=== PATIENT | male | born 1970 | race Caucasian/White ===

== ENCOUNTER 2017-04-28 19:41 | Emergency (ER) | payer SELFPAY ==
--- NOTE | 2017-04-28 20:07 | C.PDOC ---
History Of Present Illness 46 year old male presents to the ER with a complaint of lower abdominal pain, testicular pain, dysuria, and frequency for the past several weeks. Patient was seen by PMD a week ago who started him on antibiotics, he reports having improvement of his dysuria, however, the frequency, abdominal pain, and testicular pain persists. Denies fever or chills. Time Seen by Provider: 04/28/17 19:50 History Per: Patient History/Exam Limitations: no limitations Onset/Duration Of Symptoms: Days Current Symptoms Are (Timing): Still Present Quality Of Discomfort: Unable To Describe Associated Symptoms: Urinary Symptoms (Frequency), Other (Abdominal pain, testicular pain). denies: Fever, Chills Alleviating Factors: None Recent travel outside of the [place]: No Past Medical History Reviewed: Historical Data, Nursing Documentation, Vital Signs Vital Signs: Last Vital Signs Temp 98.2 F 04/28/17 21:51 Pulse 53 L 04/28/17 21:51 Resp 18 04/28/17 21:51 BP 134/81 04/28/17 21:51 Pulse Ox 98 04/28/17 21:51 Surgical History: Cholecystectomy Family History: States: Unknown Family Hx - Social History Hx Alcohol Use: No Hx Substance Use: No Review Of Systems Except As Marked, All Systems Reviewed And Found Negative. Constitutional: Negative for: Fever, Chills Gastrointestinal: Positive for: Abdominal Pain Genitourinary: Positive for: Frequency, Other (Testicular pain) Physical Exam - Physical Exam Appears: Non-toxic, No Acute Distress Skin: Normal Color, Warm, Dry Head: Atraumatic, Normacephalic Eye(s): bilateral: Normal Inspection Oral Mucosa: Moist Chest: Symmetrical, No Tenderness Cardiovascular: Rhythm Regular Respiratory: Normal Breath Sounds, No Accessory Muscle Use Gastrointestinal/Abdominal: Soft, No Tenderness Male Genital: No Testicular Tenderness, No Testicular Swelling, No Inguinal Tenderness, No Inguinal Swelling, No Scrotal Swelling, No Circumcised Neurological/Psych: Oriented x3, Normal Speech ED Course And Treatment - Laboratory Results Result Diagrams: 04/28/17 20:29 04/28/17 20:29 O2 Sat by Pulse Oximetry: 99 (Room air) Pulse Ox Interpretation: Normal - Other Rad PELVIS X-Ray: Interpreted by Me (NEG) - CT Scan/US Testicular US Other Rad Studies (CT/US): Read By Radiologist, Radiology Report Reviewed CT/US Interpretation: EXAM: US Scrotum. US Duplex Arterial/Venous of the Testicles, Complete. EXAM DATE/TIME: 04/28/2017 8:25 PM. CLINICAL HISTORY: 46 years old, male; Pain; Scrotum pain. TECHNIQUE: Real-time ultrasound of the scrotum with color Doppler and image documentation. Real-time duplex. ultrasound scan of the arterial and venous flow of the scrotal contents with color Doppler flow and. spectral waveform analysis. COMPARISON: There are no prior studies for comparison. FINDINGS: Right: There is a right hydrocele. Right testicle measures 4.5 x 2.1 by 3.6 cm. Echotexture is. uniform. There are no masses.There is expected intratesticular blood flow. There is a hydrocele. Fluid. is mildly echogenic.Right epididymal head measures approximately 10 x 6 mm. There is a 2 x 1.5 x 1 mm scrotolith. Left: Left testicle measures approximately 4.7 x 2.1 x 3.1 cm. Left epididymal head measures. approximately 11 x 6 mm. There is a left hydrocele with echogenic fluid. There are no testicular masses. Echotexture of the testis is uniform. There is a small microcalcification. There is expected. intratesticular blood flow. There is a left varicocele. IMPRESSION: Small bilateral hydroceles; no torsion, epididymitis or orchitis; left varicocele Reevaluation Time: 21:43 Reassessment Condition: Improved (MALIK NO ACUTE FINDINGS. PS PENDING APPT W UROLOGIST IN [facility] 05/01) Medical Decision Making Medical Decision Making: Plan: * Blood work * Urinalysis * Testicular US * Pyridium * Toradol Disposition Counseled Patient/Family Regarding: Studies Performed, Diagnosis, Need For Followup, Rx Given - Disposition Referrals: Harpreet Min MD [Staff Provider] - Disposition: HOME/ ROUTINE Disposition Time: 21:44 Condition: IMPROVED Additional Instructions: YOUR LABS, ULTRASOUND AND XRAY ARE NORMAL. FOLLOW UP WITH YOUR PMD/UROLOGIST. RETURN IF WORSENING SYMPTOMS. Prescriptions: Ibuprofen [Motrin] 600 mg PO Q6 #30 tab Phenazopyridine HCl [Pyridium] 200 mg PO BID #6 tablet Forms: [employer] (Vietnamese), General Discharge Instructions - Clinical Impression Clinical Impression: Back pain, Groin pain, Testicular pain - Scribe Statement The provider has reviewed the documentation as recorded by the Scribe Martin Strickland All medical record entries made by the Scribe were at my direction and personally dictated by me. I have reviewed the chart and agree that the record accurately reflects my personal performance of the history, physical exam, medical decision making, and the department course for this patient. I have also personally directed, reviewed, and agree with the discharge instructions and disposition.
[2017-04-28 20:23] LABS: URINE BILIRUBIN NEGATIVE (NEGATIVE); URINE BLOOD NEGATIVE (NEGATIVE); URINE CLARITY Clear (Clear); URINE COLOR Straw (YELLOW); URINE GLUCOSE (UA) NORMAL (Normal); URINE LEUKOCYTE ESTERASE NEG Leu/uL (Negative); URINE NITRATE NEGATIVE (NEGATIVE); URINE PROTEIN NEGATIVE (NEGATIVE); URINE UROBILINOGEN NORMAL mg/dL (0.2-1.0)
[2017-04-28 20:32] LABS: BASO % 0.5 % (0.0-2.0); EOS # 0.3 K/uL (0.0-0.7); EOS % 2.9 % (0.0-4.0); HEMOGLOBIN 14.2 g/dL (12.0-18.0); LYMPH # 3.3 K/uL (1.0-4.3); LYMPH % 36.9 % (20.0-40.0); MEAN CELL VOLUME 85.2 fL (80.0-94.0); MEAN CORPUSCULAR HEMOGLOBIN 29.1 pg (27.0-31.0); MEAN CORPUSCULAR HGB CONC 34.2 g/dL (33.0-37.0); MEAN PLATELET VOLUME 9.3 fL (7.2-11.7); MONO # 0.9 K/uL (0.0-0.8); MONO % 10.2 % (0.0-10.0); NEUT # 4.4 K/uL (1.8-7.0); NEUT % 49.5 % (50.0-75.0); NRBC % 0.1 % (0.0-2.0); RBC 4.86 Mil/uL (4.40-5.90); RED CELL DISTRIBUTION WIDTH 14.2 % (11.5-14.5); WHITE BLOOD COUNT 8.8 K/uL (4.8-10.8)
[2017-04-28 20:48] LABS: BLOOD UREA NITROGEN 21 mg/dL (9-20); CALCIUM 9.3 mg/dl (8.6-10.4); GFR AFRICAN-AMERICAN > 60; GFR NON-AFRICAN AMERICAN > 60
--- NOTE | 2017-04-28 21:29 | US ---
EXAM: US Scrotum US Duplex Arterial/Venous of the Testicles, Complete EXAM DATE/TIME: 04/28/2017 8:25 PM CLINICAL HISTORY: 46 years old, male; Pain; Scrotum pain TECHNIQUE: Real-time ultrasound of the scrotum with color Doppler and image documentation. Real-time duplex ultrasound scan of the arterial and venous flow of the scrotal contents with color Doppler flow and spectral waveform analysis. COMPARISON: There are no prior studies for comparison. FINDINGS: Right: There is a right hydrocele. Right testicle measures 4.5 x 2.1 by 3.6 cm. Echotexture is uniform. There are no masses.There is expected intratesticular blood flow. There is a hydrocele. Fluid is mildly echogenic.Right epididymal head measures approximately 10 x 6 mm. There is a 2 x 1.5 x 1 mm scrotolith. Left: Left testicle measures approximately 4.7 x 2.1 x 3.1 cm. Left epididymal head measures approximately 11 x 6 mm. There is a left hydrocele with echogenic fluid. There are no testicular masses. Echotexture of the testis is uniform. There is a small microcalcification. There is expected intratesticular blood flow. There is a left varicocele IMPRESSION: Small bilateral hydroceles; no torsion, epididymitis or orchitis; left varicocele Additional nonemergent findings as described above.
[2017-04-28 21:51] VITALS: BP 134/81; PULSE 53; RESP 18; TEMP 98.2
[2017-04-28 21:59] VITALS: O2SAT 99
--- NOTE | 2017-04-29 08:40 | RAD ---
PROCEDURE: Radiographs of the pelvis. HISTORY: PAIN COMPARISON: None. FINDINGS: BONES: Pelvic Bones: Unremarkable. Hips: Grossly unremarkable. JOINTS: Sacroiliac Joints: Unremarkable. Pubic Symphysis: Unremarkable. OTHER FINDINGS: None. IMPRESSION: Unremarkable radiographs of the pelvis.
== END 2017-04-28 22:02 | disposition home or self-care (01) ==
LOC: C.ER 19:41
DX: R10.30 Lower abdominal pain, unspecified (principal); N50.819 Testicular pain, unspecified; M54.9 Dorsalgia, unspecified
CPT/HCPCS: 72170; 76870; 80048; 81001; 85025; 87086; 96374; 99284; J1885

== ENCOUNTER 2017-06-27 19:57 | Emergency (ER) | payer OTHER ==
[2017-06-27 20:58] VITALS: BP 127/83; PULSE 77; RESP 20; TEMP 99.4; O2SAT 97
--- NOTE | 2017-06-27 21:40 | C.PDOC ---
History Of Present Illness 46 yo male w/o significant PMHx come in for evaluation of cold sx associated with nasal congestion, runny nose, sore throat gradually developed for past 3-4 days. Pt admits, takes OTC medication with moderate improvement in sx. Otherwise , pt denies high fever, chills, headache, dizziness, drooling, neck pain, CP, SOB, dyspnea, wheezing, abd. pain, V/D, UTI sx, denies recent travel or known sick contact. Ambulate to Ed for evaluation, not in any apparent distress. Time Seen by Provider: 06/27/17 21:03 Chief Complaint (Nursing): Fever History Per: Patient Onset/Duration Of Symptoms: Gradual Current Symptoms Are (Timing): Better Past Medical History Reviewed: Historical Data, Nursing Documentation, Vital Signs Vital Signs: Last Vital Signs Temp 99.4 F 06/27/17 20:55 Pulse 77 06/27/17 20:55 Resp 20 06/27/17 21:50 BP 127/83 06/27/17 20:55 Pulse Ox 97 07/02/17 04:51 - Medical History PMH: No Chronic Diseases Surgical History: Cholecystectomy Family History: States: Unknown Family Hx - Social History Hx Alcohol Use: No Hx Substance Use: No Review Of Systems Except As Marked, All Systems Reviewed And Found Negative. Constitutional: Negative for: Fever, Chills ENT: Positive for: Nose Discharge, Nose Congestion. Negative for: Ear Pain, Ear Discharge, Throat Pain, Throat Swelling Cardiovascular: Negative for: Chest Pain Respiratory: Positive for: Cough. Negative for: Shortness of Breath, Wheezing Gastrointestinal: Negative for: Nausea, Vomiting, Abdominal Pain, Diarrhea Genitourinary: Negative for: Dysuria, Incontinence Musculoskeletal: Negative for: Neck Pain, Back Pain Skin: Negative for: Rash Neurological: Negative for: Weakness, Numbness, Altered Mental Status, Headache , Dizziness Physical Exam - Physical Exam Appears: Well, Non-toxic, No Acute Distress Skin: Normal Color, Warm, Dry, No Rash Head: Normacephalic Eye(s): bilateral: PERRL Ear(s): Bilateral: Normal Nose: No Flaring, No Discharge Oral Mucosa: Moist, No Drooling Tongue: Normal Appearing, No Swelling Lips: Normal Appearing, No Swelling Throat: No Erythema, No Drooling Neck: Trachea Midline, Supple, Other ((-) meningeal sign) Cardiovascular: Rhythm Regular, No Murmur Respiratory: No Decreased Breath Sounds, No Accessory Muscle Use, No Stridor, No Wheezing Gastrointestinal/Abdominal: Soft, No Tenderness, No Distention, No Guarding Back: No CVA Tenderness Extremity: Normal ROM, No Deformity, No Swelling Neurological/Psych: Oriented x3, Normal Speech ED Course And Treatment O2 Sat by Pulse Oximetry: 97 Pulse Ox Interpretation: Normal Progress Note: On re-evaluation, pt is awake, comfortable, not in any apparent distress. Afebrile, hemodynamicaly stable. NOn-toxic, tolerate Po well in ED. PulsEOx 97% RA. neck: Supple, (-) menigeal sign. ENT: no acute findings, uvula midline, no edema. Lungs: CTA B/L, BS equal B/L. ABd: benign, (-) guarding, (-) rebound. neurologicaly intact. Pt has clinical findings c/w Influenza-like illness. Pt Advised on course of ds. Ref. to f/u with PMD in 2- 3 days for re-eval. retrun to ED if any worsening or new changes. Disposition Counseled Patient/Family Regarding: Diagnosis, Need For Followup, Rx Given - Disposition Referrals: [facility] [Outside] Disposition: HOME/ ROUTINE Disposition Time: 21:37 Condition: STABLE Additional Instructions: Encourage fluids Take Ibuprofen as need for pain and fever Follow up with PMD in 2-3 days for re-evaluation. return to ED if any worsening or new changes. Prescriptions: Ibuprofen [Motrin Tab] 600 mg PO TID #20 tab Instructions: Viral Syndrome (DC) Forms: [employer] (Serbian) - Clinical Impression Clinical Impression: Influenza-like illness
== END 2017-06-27 21:50 | disposition home or self-care (01) ==
LOC: C.ER 19:57
DX: J11.1 Influenza due to unidentified influenza virus with other respiratory manifestations (principal)

== ENCOUNTER 2017-06-29 05:36 | Observation (INO) | payer OTHER, SELFPAY ==
[2017-06-29 06:38] LABS: URINE BILIRUBIN NEGATIVE (NEGATIVE); URINE BLOOD 2+ (NEGATIVE); URINE CLARITY Clear (Clear); URINE COLOR Yellow (YELLOW); URINE GLUCOSE (UA) NORMAL (Normal); URINE LEUKOCYTE ESTERASE NEG Leu/uL (Negative); URINE PROTEIN NEGATIVE (NEGATIVE); URINE UROBILINOGEN NORMAL mg/dL (0.2-1.0)
--- NOTE | 2017-06-29 06:47 | C.PDOC ---
History Of Present Illness 46 year old male presents to the ER with a complaint of generalized body aches, mouth sores,and persistent fever for the past few days. Patient was seen on 07/10 for the same complaints, he was advised to take motrin for viral illness, however, fever recurs. Patient also reports having a minimal cough. Denies SOB, urinary symptoms, or abdominal pain. Time Seen by Provider: 06/29/17 06:06 Chief Complaint (Nursing): Flu-like Symptoms History Per: Patient History/Exam Limitations: no limitations Onset/Duration Of Symptoms: Days Current Symptoms Are (Timing): Still Present Location Of Pain: Diffuse Myalgias, Other (Mouth) Sick Contacts (Context): None Associated Symptoms: Fever, Myalgias, Other ((+) Mouth sores. (-) SOB, urinary symptoms, abdominal pain) Ear Symptoms: Bilateral: None Recent travel outside of the [place]: No Past Medical History Reviewed: Historical Data, Nursing Documentation, Vital Signs Vital Signs: Last Vital Signs Temp 102.5 F H 06/29/17 06:54 Pulse 91 H 06/29/17 06:54 Resp 18 06/29/17 06:54 BP 112/73 06/29/17 06:54 Pulse Ox 95 06/29/17 07:18 Surgical History: Cholecystectomy Family History: States: Unknown Family Hx - Social History Hx Alcohol Use: No Hx Substance Use: No Review Of Systems Constitutional: Positive for: Fever Respiratory: Positive for: Cough (minimal). Negative for: Shortness of Breath Gastrointestinal: Negative for: Abdominal Pain Genitourinary: Negative for: Dysuria, Hematuria Musculoskeletal: Positive for: Other (Generalized body aches) Physical Exam - Physical Exam Appears: Non-toxic Skin: Normal Color, Warm, Dry Head: Atraumatic, Normacephalic Eye(s): bilateral: Normal Inspection Ear(s): Bilateral: Normal Oral Mucosa: Moist, Other (Small canker sores to buccal aspect of lower lip and gum) Throat: Normal, No Erythema, No Exudate Neck: Normal, Supple Chest: Symmetrical, No Tenderness Cardiovascular: Rhythm Regular Respiratory: Normal Breath Sounds, No Rales, No Rhonchi, No Wheezing Gastrointestinal/Abdominal: Soft, No Tenderness Back: No CVA Tenderness Neurological/Psych: Oriented x3, Normal Speech ED Course And Treatment O2 Sat by Pulse Oximetry: 95 (Room air) Pulse Ox Interpretation: Normal Progress Note: Toradol and tylenol administered. Urinalysis ordered. 0700: Pt reports no improvement of sx, still febrile 102.5 HR 91. labs, cxr, IVF ordered Disposition Counseled Patient/Family Regarding: Diagnosis - Disposition Disposition Time: 07:14 Condition: STABLE Forms: [employer] (Amharic) - Clinical Impression Clinical Impression: Fever - PA / [employer] C[employer] CLERK / Resident Statement MD/DO has reviewed & agrees with the documentation as recorded. - Scribe Statement The provider has reviewed the documentation as recorded by the Scribe Martin Strickland All medical record entries made by the Marcelinoibclifford were at my direction and personally dictated by me. I have reviewed the chart and agree that the record accurately reflects my personal performance of the history, physical exam, medical decision making, and the department course for this patient. I have also personally directed, reviewed, and agree with the discharge instructions and disposition. Physician Patient Turnover Patient Signed Over To: Jaye Mercado Handoff Comments: Pending labs and reeval
[2017-06-29] MEDS ORDERED: Sodium Chloride 0.9% 1,000 ML IV ONE (07:09)
[2017-06-29 07:25] LABS: BASO % 0.4 % (0.0-2.0); LYMPH # 0.9 K/uL (1.0-4.3); LYMPH % 6.7 % (20.0-40.0); MEAN CELL VOLUME 84.6 fL (80.0-94.0); MEAN CORPUSCULAR HEMOGLOBIN 29.2 pg (27.0-31.0); MEAN CORPUSCULAR HGB CONC 34.5 g/dL (33.0-37.0); MEAN PLATELET VOLUME 8.9 fL (7.2-11.7); MONO # 1.9 K/uL (0.0-0.8); MONO % 13.2 % (0.0-10.0); NEUT # 11.3 K/uL (1.8-7.0); NEUT % 79.7 % (50.0-75.0); PLATELET COUNT 190 K/uL (130-400); RBC 4.46 Mil/uL (4.40-5.90); RED CELL DISTRIBUTION WIDTH 13.2 % (11.5-14.5)
[2017-06-29 07:29] LABS: WHITE BLOOD COUNT 14.2 K/uL (4.8-10.8)
[2017-06-29] MEDS ORDERED: Sodium Chloride 0.9% 1,000 ML ONE (07:54)
[2017-06-29 07:57] LABS: ALB/GLOB RATIO 0.9 (1.0-2.1); ALBUMIN 3.6 g/dL (3.5-5.0); ALT/SGPT 22 U/L (21-72); AST/SGOT 22 U/L (17-59); BLOOD UREA NITROGEN 11 mg/dL (9-20); CALCIUM 8.7 mg/dl (8.6-10.4); GFR AFRICAN-AMERICAN > 60; GFR NON-AFRICAN AMERICAN > 60
[2017-06-29 08:18] LABS: BANDS 3 % (0-2); LYMPHOCYTE 9 % (20-40); MONOCYTE 13 % (0-10); NEUTROPHIL 75 % (50-75); PLATELET ESTIMATE NORMAL (NORMAL); TOTAL CELLS COUNTED 100
--- NOTE | 2017-06-29 08:34 | RAD ---
HISTORY: cough, fever COMPARISON: No prior. TECHNIQUE: Chest PA and lateral FINDINGS: LUNGS: Minimal subsegmental atelectasis at left base. No infiltrate. PLEURA: No significant pleural effusion identified. No pneumothorax apparent. CARDIOVASCULAR: Normal. OSSEOUS STRUCTURES: No significant abnormalities. VISUALIZED UPPER ABDOMEN: Normal. OTHER FINDINGS: None. IMPRESSION: No active disease.
[2017-06-29] MEDS ORDERED: Potassium Chloride 20 mEq ER Tab PO SCH (10:00)
[2017-06-29] MEDS ORDERED: Potassium Chloride 20 mEq ER Tab PO ONE (10:15)
[2017-06-29] MEDS: guaiFENesin 600 mg ER Tab PO SCH ×2 (10:40→21:29)
[2017-06-29 10:45] LABS: LEGIONELLA AG URINE NEGATIVE (NEGATIVE)
[2017-06-29 10:51] LABS: BARBITURATES, UR NEGATIVE (NEGATIVE); BENZODIAZEPINES, UR NEGATIVE (NEGATIVE); OPIATES, UR NEGATIVE (NEGATIVE); PHENCYCLIDINE, UR NEGATIVE (NEGATIVE)
--- NOTE | 2017-06-29 11:13 | CP.PCM.HP ---
Addendum entered and electronically signed by Neelima Brown DO 06/29/17 15:03: of note: tonsils enlarged bilaterally, inflamed with crypts. No drainage noted. Original Note: <Neelima Brown - Last Filed: 06/29/17 14:27> History of Present Illness - History of Present Illness History of Present Illness: HPI 46M with past medical history of BPH presents with fever 102.9F, chills, lower back and upper back aches, neck aches, headaches.Patient states the lower back pain began after having a rash appear on his lower back and arms. Patient states that the rash was itchy. Patient went to ER 06/27/16 and was sent home on Motrin and told to hydrate. Patient states he wasn't feeling better so he came in today. 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 Patient states he started having a dry cough 06/28/2017. Past Medical History: BPH, patient states he had measles and chicken pox when he was 14. Medications: Flomax 0.4mg PO QD Surgery: Cholecystectomy 2012 Hospitalizations: Hepatitis (Patient states it may have been Hepatitis B) Social: livestock farm workers. Last sexual encounter January 2017. Patient admits to headache, pain with movement of his eyes. Patient denies changes in vision, nausea, vomiting, loss of hearing, hemoptysis , neck stiffness, weakness, numbness, tingling, rhinorrhea. Present on Admission - Present on Admission Any Indicators Present on Admission: Yes History of DVT/PE: No History of Uncontrolled Diabetes: No Urinary Catheter: No Decubitus Ulcer Present: No Review of Systems - Constitutional Constitutional: Chills, Fever - EENT Eyes: As Per HPI - Cardiovascular Cardiovascular: As Per HPI. absent: Chest Pain with Activity, Dyspnea on Exertion, Edema - Respiratory Respiratory: Cough. absent: Dyspnea, Hemoptysis, Dyspnea on Exertion - Gastrointestinal Gastrointestinal: absent: Abdominal Pain, Dyspepsia, Dysphagia - Genitourinary Genitourinary: absent: Change in Urinary Stream, Difficulty Urinating, Dysuria, Urinary Frequency - Musculoskeletal Musculoskeletal: Back Pain (lower back paraspinal muscle tenderness). absent: Joint Swelling, Muscle Cramps, Muscle Weakness, Numbness, Radiating Pain into Limb, Stiffness - Integumentary Integumentary: absent: Erythema, Unusual Bruising - Neurological Neurological: As Per HPI. absent: Abnormal Gait, Abnormal Hearing, Dizziness, Tremor, Vertigo - Psychiatric Psychiatric: As Per HPI. absent: Anxiety Past Patient History - Past Social History Smoking Status: Never Smoked Chewing Tobacco Use: No Cigar Use: No Alcohol: Social Drugs: Cannabis (former user in his youth) - PSYCHIATRIC Hx Substance Use: No - SURGICAL HISTORY Hx Cholecystectomy: Yes - ANESTHESIA Hx Anesthesia: Yes Meds Allergies/Adverse Reactions: Allergies Allergy/AdvReac Type Severity Reaction Status Date / Time No Known Allergies Allergy Verified 04/28/17 19:56 Physical Exam - Head Exam Head Exam: NORMAL INSPECTION, NORMOCEPHALIC - Eye Exam Eye Exam: EOMI, Normal appearance Pupil Exam: NORMAL ACCOMODATION, PERRL - ENT Exam ENT Exam: Mucous Membranes Moist, Normal Exam - Neck Exam Neck exam: Positive for: Full Rom, Lymphadenopathy. Negative for: Thyromegaly Additional comments: cervical lymphadenopathy noted with mild tenderness to palpation bilaterally - Respiratory Exam Respiratory Exam: Clear to Auscultation Bilateral, NORMAL BREATHING PATTERN. absent: Accessory Muscle Use, Respiratory Distress - Cardiovascular Exam Cardiovascular Exam: REGULAR RHYTHM, +S1, +S2. absent: Bradycardia, Tachycardia - GI/Abdominal Exam GI & Abdominal Exam: Normal Bowel Sounds, Soft. absent: Firm, Guarding, Organomegaly - Rectal Exam Rectal Exam: absent: NORMAL INSPECTION - Extremities Exam Extremities exam: Positive for: full ROM. Negative for: pedal edema - Back Exam Back exam: FULL ROM, NORMAL INSPECTION, paraspinal tenderness (mild tenderness L2-L4). absent: CVA tenderness (L), CVA tenderness (R), rash noted - Neurological Exam Neurological exam: CN II-XII Intact, Oriented x3 - Psychiatric Exam Psychiatric exam: Normal Affect, Normal Mood - Skin Skin Exam: Dry, Intact, Normal Color, Warm Additional comments: no rash Results - Vital Signs Recent Vital Signs: Last Vital Signs Temp 99.2 F 06/29/17 10:15 Pulse 78 06/29/17 10:15 Resp 18 06/29/17 10:15 BP 118/76 06/29/17 10:15 Pulse Ox 99 06/29/17 10:15 - Labs Result Diagrams: 06/29/17 07:21 06/29/17 07:21 Labs: Laboratory Results - last 24 hr 06/29/17 06/29/17 06/29/17 06:12 07:21 07:21 WBC 14.2 H D RBC 4.46 Hgb 13.0 Hct 37.7 MCV 84.6 MCH 29.2 MCHC 34.5 RDW 13.2 Plt Count 190 MPV 8.9 Neut % (Auto) 79.7 H Lymph % (Auto) 6.7 L [place] % (Auto) 13.2 H Eos % (Auto) 0.0 Baso % (Auto) 0.4 Neut # (Auto) 11.3 H Lymph # (Auto) 0.9 L [place] # (Auto) 1.9 H Eos # (Auto) 0.0 Baso # (Auto) 0.0 Neutrophils % (Manual) 75 Band Neutrophils % 3 H Lymphocytes % (Manual) 9 L Monocytes % (Manual) 13 H Platelet Estimate Normal RBC Morphology Normal Sodium 141 Potassium 3.5 L Chloride 104 Carbon Dioxide 25 Anion Gap 16 BUN 11 Creatinine 0.7 L Est GFR ( Amer) > 60 Est GFR (Non-Af Amer) > 60 Random Glucose 127 H Lactic Acid Calcium 8.7 Total Bilirubin 1.2 AST 22 ALT 22 Alkaline Phosphatase 94 Lactate Dehydrogenase 331 Total Protein 7.6 Albumin 3.6 Globulin 4.0 H Albumin/Globulin Ratio 0.9 L Urine Color Yellow Urine Clarity Clear Urine pH 6.0 Ur Specific [place] 1.021 Urine Protein Negative Urine Glucose (UA) Normal Urine Ketones Negative Urine Blood 2+ H Urine Nitrate Negative Urine Bilirubin Negative Urine Urobilinogen Normal Ur Leukocyte Esterase Neg Urine WBC (Auto) 2 Urine RBC (Auto) 24 H Urine Opiates Screen Urine Methadone Screen Ur Barbiturates Screen Ur Phencyclidine Scrn Ur Amphetamines Screen U Benzodiazepines Scrn U Oth Cocaine Metabols U Cannabinoids Screen Influenza Typ A,B (EIA) Ur L.pneumophila Ag 06/29/17 06/29/17 06/29/17 07:52 09:49 09:49 WBC RBC Hgb Hct MCV MCH MCHC RDW Plt Count MPV Neut % (Auto) Lymph % (Auto) [place] % (Auto) Eos % (Auto) Baso % (Auto) Neut # (Auto) Lymph # (Auto) [place] # (Auto) Eos # (Auto) Baso # (Auto) Neutrophils % (Manual) Band Neutrophils % Lymphocytes % (Manual) Monocytes % (Manual) Platelet Estimate RBC Morphology Sodium Potassium Chloride Carbon Dioxide Anion Gap BUN Creatinine Est GFR ( Amer) Est GFR (Non-Af Amer) Random Glucose Lactic Acid 0.7 Calcium Total Bilirubin AST ALT Alkaline Phosphatase Lactate Dehydrogenase Total Protein Albumin Globulin Albumin/Globulin Ratio Urine Color Urine Clarity Urine pH Ur Specific [place] Urine Protein Urine Glucose (UA) Urine Ketones Urine Blood Urine Nitrate Urine Bilirubin Urine Urobilinogen Ur Leukocyte Esterase Urine WBC (Auto) Urine RBC (Auto) Urine Opiates Screen Urine Methadone Screen Ur Barbiturates Screen Ur Phencyclidine Scrn Ur Amphetamines Screen U Benzodiazepines Scrn U Oth Cocaine Metabols U Cannabinoids Screen Influenza Typ A,B (EIA) Negative for flu a/b Ur L.pneumophila Ag Negative 06/29/17 09:49 WBC RBC Hgb Hct MCV MCH MCHC RDW Plt Count MPV Neut % (Auto) Lymph % (Auto) [place] % (Auto) Eos % (Auto) Baso % (Auto) Neut # (Auto) Lymph # (Auto) [place] # (Auto) Eos # (Auto) Baso # (Auto) Neutrophils % (Manual) Band Neutrophils % Lymphocytes % (Manual) Monocytes % (Manual) Platelet Estimate RBC Morphology Sodium Potassium Chloride Carbon Dioxide Anion Gap BUN Creatinine Est GFR ( Amer) Est GFR (Non-Af Amer) Random Glucose Lactic Acid Calcium Total Bilirubin AST ALT Alkaline Phosphatase Lactate Dehydrogenase Total Protein Albumin Globulin Albumin/Globulin Ratio Urine Color Urine Clarity Urine pH Ur Specific [place] Urine Protein Urine Glucose (UA) Urine Ketones Urine Blood Urine Nitrate Urine Bilirubin Urine Urobilinogen Ur Leukocyte Esterase Urine WBC (Auto) Urine RBC (Auto) Urine Opiates Screen Negative Urine Methadone Screen Negative Ur Barbiturates Screen Negative Ur Phencyclidine Scrn Negative Ur Amphetamines Screen Negative U Benzodiazepines Scrn Negative U Oth Cocaine Metabols Negative U Cannabinoids Screen Negative Influenza Typ A,B (EIA) Ur L.pneumophila Ag Assessment & Plan - Assessment and Plan (Free Text) Assessment: 46M with past medical history of BPH presents with back-aches, headaches, neck- aches, and cough and is being treated for URI URI with fever and leukocytosis Fever: Tylenol 650mg Q6H PRN Vitamin C 500mg PO QD Mucinex LA 600mg PO Q12H Zosyn 3.375gm in 50cc IVPB Q6H Florastor 250mg PO BID LR @75cc/hr f/u urine culture f/u throat culture f/u beta strep b culture f/u blood culture f/u Urine legionella ag negative f/u urine strep culture f/u Mycoplasma pneumoniae IgM f/u Procalcitonin serum UA negative Urine Drug test: negative 06/29 CXR: no active disease Urine drug screen negative f/u AM CBC discussed with Dr. Khloe Brown DO PGY1 - Date & Time Date: 06/29/17 Time: 14:08 <Galina Ledbetter V - Last Filed: 06/29/17 17:15> History of Present Illness - History of Present Illness History of Present Illness: Note missing in resident portion: CC: I have fever at home. 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 Only motrin and tylenol for fever. Fever persistent for one week Allergies: NKDA Family hx: denies Present on Admission - Notes: Notes:: no hx of dvt/dm/decubitus/nor cardiac hx; indicators are none; in error in resident portion of H&P Results - Vital Signs Recent Vital Signs: Last Vital Signs Temp 101.1 F H 06/29/17 12:21 Pulse 88 06/29/17 10:27 Resp 18 06/29/17 10:27 BP 135/88 06/29/17 10:27 Pulse Ox 99 06/29/17 10:27 - Labs Result Diagrams: 06/29/17 07:21 06/29/17 07:21 Labs: Laboratory Results - last 24 hr 06/29/17 06/29/17 06/29/17 06:12 07:21 07:21 WBC 14.2 H D RBC 4.46 Hgb 13.0 Hct 37.7 MCV 84.6 MCH 29.2 MCHC 34.5 RDW 13.2 Plt Count 190 MPV 8.9 Neut % (Auto) 79.7 H Lymph % (Auto) 6.7 L [place] % (Auto) 13.2 H Eos % (Auto) 0.0 Baso % (Auto) 0.4 Neut # (Auto) 11.3 H Lymph # (Auto) 0.9 L [place] # (Auto) 1.9 H Eos # (Auto) 0.0 Baso # (Auto) 0.0 Neutrophils % (Manual) 75 Band Neutrophils % 3 H Lymphocytes % (Manual) 9 L Monocytes % (Manual) 13 H Platelet Estimate Normal RBC Morphology Normal Sodium 141 Potassium 3.5 L Chloride 104 Carbon Dioxide 25 Anion Gap 16 BUN 11 Creatinine 0.7 L Est GFR ( Amer) > 60 Est GFR (Non-Af Amer) > 60 Random Glucose 127 H Lactic Acid Calcium 8.7 Total Bilirubin 1.2 AST 22 ALT 22 Alkaline Phosphatase 94 Lactate Dehydrogenase 331 Total Protein 7.6 Albumin 3.6 Globulin 4.0 H Albumin/Globulin Ratio 0.9 L Urine Color Yellow Urine Clarity Clear Urine pH 6.0 Ur Specific [place] 1.021 Urine Protein Negative Urine Glucose (UA) Normal Urine Ketones Negative Urine Blood 2+ H Urine Nitrate Negative Urine Bilirubin Negative Urine Urobilinogen Normal Ur Leukocyte Esterase Neg Urine WBC (Auto) 2 Urine RBC (Auto) 24 H Urine Opiates Screen Urine Methadone Screen Ur Barbiturates Screen Ur Phencyclidine Scrn Ur Amphetamines Screen U Benzodiazepines Scrn U Oth Cocaine Metabols U Cannabinoids Screen Influenza Typ A,B (EIA) Ur L.pneumophila Ag S. pneumoniae Antigen 06/29/17 06/29/17 06/29/17 07:52 09:49 09:49 WBC RBC Hgb Hct MCV MCH MCHC RDW Plt Count MPV Neut % (Auto) Lymph % (Auto) [place] % (Auto) Eos % (Auto) Baso % (Auto) Neut # (Auto) Lymph # (Auto) [place] # (Auto) Eos # (Auto) Baso # (Auto) Neutrophils % (Manual) Band Neutrophils % Lymphocytes % (Manual) Monocytes % (Manual) Platelet Estimate RBC Morphology Sodium Potassium Chloride Carbon Dioxide Anion Gap BUN Creatinine Est GFR ( Amer) Est GFR (Non-Af Amer) Random Glucose Lactic Acid 0.7 Calcium Total Bilirubin AST ALT Alkaline Phosphatase Lactate Dehydrogenase Total Protein Albumin Globulin Albumin/Globulin Ratio Urine Color Urine Clarity Urine pH Ur Specific [place] Urine Protein Urine Glucose (UA) Urine Ketones Urine Blood Urine Nitrate Urine Bilirubin Urine Urobilinogen Ur Leukocyte Esterase Urine WBC (Auto) Urine RBC (Auto) Urine Opiates Screen Urine Methadone Screen Ur Barbiturates Screen Ur Phencyclidine Scrn Ur Amphetamines Screen U Benzodiazepines Scrn U Oth Cocaine Metabols U Cannabinoids Screen Influenza Typ A,B (EIA) Negative for flu a/b Ur L.pneumophila Ag Negative S. pneumoniae Antigen 06/29/17 06/29/17 09:49 10:00 WBC RBC Hgb Hct MCV MCH MCHC RDW Plt Count MPV Neut % (Auto) Lymph % (Auto) [place] % (Auto) Eos % (Auto) Baso % (Auto) Neut # (Auto) Lymph # (Auto) [place] # (Auto) Eos # (Auto) Baso # (Auto) Neutrophils % (Manual) Band Neutrophils % Lymphocytes % (Manual) Monocytes % (Manual) Platelet Estimate RBC Morphology Sodium Potassium Chloride Carbon Dioxide Anion Gap BUN Creatinine Est GFR ( Amer) Est GFR (Non-Af Amer) Random Glucose Lactic Acid Calcium Total Bilirubin AST ALT Alkaline Phosphatase Lactate Dehydrogenase Total Protein Albumin Globulin Albumin/Globulin Ratio Urine Color Urine Clarity Urine pH Ur Specific [place] Urine Protein Urine Glucose (UA) Urine Ketones Urine Blood Urine Nitrate Urine Bilirubin Urine Urobilinogen Ur Leukocyte Esterase Urine WBC (Auto) Urine RBC (Auto) Urine Opiates Screen Negative Urine Methadone Screen Negative Ur Barbiturates Screen Negative Ur Phencyclidine Scrn Negative Ur Amphetamines Screen Negative U Benzodiazepines Scrn Negative U Oth Cocaine Metabols Negative U Cannabinoids Screen Negative Influenza Typ A,B (EIA) Ur L.pneumophila Ag S. pneumoniae Antigen Negative Assessment & Plan (1) Fever Status: Acute Comment: Patient reports fever of one week. Patient reports colleagues at construction site have been sick and his land-lady is also sick. Patient reports he had noted a rash which has disappeared. Patient has tried Motrin at home. No antibiotic. Minimal hydration or PO intake. Patient had came in to ED over the weekend, comes in today for worsening of symptoms. Chest xray: no acute findings; will repeat tomorrow after hydration. Check Strep pneumoniae, urine Legionella, Mycoplasma IgM, and procalcitonin. Check blood cultures, LDH. Start Tylenol 650mg PO Q6H PRN fever. Start Vitamin C 500mg PO daily. Mucinex 600mg PO BID for congestion. Start Zosyn 3.375 IV Q 6H for prophylactic measure to cover for possible upper respiratory infection--> tonsillar crypts on exam. Start Florastor 250mg PO BID to cover. Check ESR, CRP, ASO, Lyme titer, Rheumatoid Factor (2) Hyperglycemia Status: Acute Comment: Check A1C given hyperglycemia (3) Hypokalemia Status: Acute Comment: replete and monitor (4) Prophylactic measure Status: Acute Comment: patient is ambulatory; will order for SCDS while he is in bed. No GI ppx indicated. Florastor 250mg PO BID. LR 75cc/hr for one day Attending/Attestation - Attestation I have personally seen and examined this patient.: Yes I have fully participated in the care of the patient.: Yes I have reviewed all pertinent clinical information: Yes Notes (Text): Patient seen, examined and case discussed with medical record assistant. Patient seen in [facility] Bed 6 on 06/29/17 at 9:25AM this morning. Discussed admitting orders with day-time resident.
[2017-06-29 11:25] LABS: STREP PNEUMONIAE NEGATIVE (NEGATIVE)
[2017-06-29] MEDS: Lactated Ringer's 1,000 ML IV SCH (12:38)
[2017-06-29] MEDS: Piperacill/Tazo 3.375gm in Dex 3.375 GM/50 ML BAG IVPB SCH ×2 (13:34→18:27)
[2017-06-29] MEDS: Saccharomyces Boulardi 250 mg Cap PO SCH (17:37)
[2017-06-30] MEDS: Piperacill/Tazo 3.375gm in Dex 3.375 GM/50 ML BAG IVPB SCH ×4 (00:15→18:51)
[2017-06-30] MEDS: Lactated Ringer's 1,000 ML IV SCH ×3 (03:12→15:10)
--- NOTE | 2017-06-30 07:08 | CP.PCM.PN ---
<Neelima Brown - Last Filed: 06/30/17 15:19> Subjective - Date & Time of Evaluation Date of Evaluation: 06/30/17 Time of Evaluation: 09:39 - Subjective Subjective: Progress Note Patient states that he feels a little better and that he said he felt a fever overnight. Patient states that he is still coughing, but has no difficulty breathing. Denies chest pain, denies abdominal pain, nausea, vomiting, diarrhea. Objective - Vital Signs/Intake and Output Vital Signs (last 24 hours): Temp Pulse Resp BP Pulse Ox 99.7 F H 78 20 114/73 96 06/29/17 23:19 06/29/17 23:19 06/29/17 23:19 06/29/17 23:19 06/30/17 00:00 Intake and Output: 06/30/17 06/30/17 06:59 18:59 Intake Total 1300 Balance 1300 - Medications Medications: Current Medications Acetaminophen (Tylenol 325mg Tab) 650 mg PO Q6 PRN PRN Reason: Fever >100.4 F Last Admin: 06/30/17 06:10 Dose: 650 mg Ascorbic Acid (Vitamin C 500 Mg Tab) 500 mg PO DAILY [facility] Last Admin: 06/29/17 10:40 Dose: 500 mg Guaifenesin (Mucinex La) 600 mg PO Q12 [facility] Last Admin: 06/29/17 21:29 Dose: 600 mg Piperacillin Sod/Tazobactam Sod (Zosyn 3.375 Gm Iv Premix) 3.375 gm in 50 mls @ 100 mls/hr IVPB Q6H [facility] PRN Reason: Protocol Last Admin: 06/30/17 06:11 Dose: 100 mls/hr Lactated Ringer's (Lactated Ringer's) 1,000 mls @ 75 mls/hr IV .[id number] [facility] Last Admin: 06/30/17 03:13 Dose: Not Given Saccharomyces Boulardii (Florastor) 250 mg PO BID [facility] Last Admin: 06/29/17 17:37 Dose: 250 mg - Labs Labs: 06/29/17 07:21 06/29/17 07:21 - Constitutional Appears: Non-toxic, No Acute Distress - Head Exam Head Exam: NORMAL INSPECTION, NORMOCEPHALIC - Eye Exam Eye Exam: EOMI, Normal appearance - ENT Exam ENT Exam: Mucous Membranes Moist, Normal Exam Additional comments: injected uvula enlarged tonsils with crypts - Neck Exam Neck Exam: Full ROM, Lymphadenopathy. absent: Tenderness - Respiratory Exam Respiratory Exam: Clear to Ausculation Bilateral, NORMAL BREATHING PATTERN. absent: Accessory Muscle Use - Cardiovascular Exam Cardiovascular Exam: REGULAR RHYTHM, +S1, +S2 - GI/Abdominal Exam GI & Abdominal Exam: Soft. absent: Tenderness - Extremities Exam Extremities Exam: Full ROM. absent: Pedal Edema - Back Exam Back Exam: Full ROM, NORMAL INSPECTION - Neurological Exam Neurological Exam: Alert, Awake, CN II-XII Intact - Psychiatric Exam Psychiatric exam: Normal Affect, Normal Mood - Skin Skin Exam: Dry, Intact, Normal Color, Warm. absent: Rash Assessment and Plan - Assessment and Plan (Free Text) Assessment: 46M with past medical history of BPH presents with back-aches, headaches, neck- aches, and cough and is being treated for URI URI with fever and leukocytosis Labs: ESR 87 Procalcitonin 0.17 UA negative Urine Drug test: negative Urine culture Negative f/u throat culture f/u beta strep b culture f/u Urine Legionella ag negative f/u urine strep culture f/u Mycoplasma pneumoniae IgM, pending Procalcitonin serum 0.17 ESR 87 CRP >15.00 f/u blood culture urine culture negative 06/29 CXR: no active disease Urine drug screen negative Fever: Tylenol 650mg Q6H PRN Vitamin C 500mg PO QD Zosyn 3.375gm in 50cc IVPB Q6H Florastor 250mg PO BID Guaifenesin 100mg PO Q4H syrup PRN LR @75cc/hr f/u AM CBC Hypokalemia repleted 06/29 f/u AM CMP Hyperglycemia, Impaired Glucose tolerance Hgb A1c 6.2 06/30 diet change to mod consistent carbohydrate Prophylaxis: patient is ambulatory SCD for while in bed no GI prophylaxis indicated at this time 06/30 diet change to mod consistent carbohydrate Florastor 250mg PO BID discussed with Dr. Khloe Brown, DO PGY1 <Galina Ledbetter V - Last Filed: 06/30/17 16:10> Objective - Vital Signs/Intake and Output Vital Signs (last 24 hours): Temp Pulse Resp BP Pulse Ox 99.7 F H 78 20 114/73 96 06/29/17 23:19 06/29/17 23:19 06/29/17 23:19 06/29/17 23:19 06/30/17 08:38 Intake and Output: 06/30/17 06/30/17 06:59 18:59 Intake Total 1300 Balance 1300 - Medications Medications: Current Medications Acetaminophen (Tylenol 325mg Tab) 650 mg PO Q6 PRN PRN Reason: Fever >100.4 F Last Admin: 06/30/17 06:10 Dose: 650 mg Ascorbic Acid (Vitamin C 500 Mg Tab) 500 mg PO DAILY [facility] Last Admin: 06/30/17 10:55 Dose: 500 mg Guaifenesin/Codeine Phosphate (Guaifenesin/Codeine) 10 ml PO Q4H PRN PRN Reason: Cough and congestion Heparin Sodium (Porcine) (Heparin) 5,000 units SC Q12 [facility] Last Admin: 06/30/17 10:53 Dose: 5,000 units Piperacillin Sod/Tazobactam Sod (Zosyn 3.375 Gm Iv Premix) 3.375 gm in 50 mls @ 100 mls/hr IVPB Q6H [facility] PRN Reason: Protocol Last Admin: 06/30/17 14:07 Dose: 100 mls/hr Lactated Ringer's (Lactated Ringer's) 1,000 mls @ 75 mls/hr IV .[id number] [facility] Last Admin: 06/30/17 03:13 Dose: Not Given Saccharomyces Boulardii (Florastor) 250 mg PO BID [facility] Last Admin: 06/30/17 10:53 Dose: 250 mg - Labs Labs: 06/30/17 08:16 06/30/17 08:16 Assessment and Plan (1) Fever Status: Acute (2) Hyperglycemia Status: Acute (3) Hypokalemia Status: Acute (4) Prophylactic measure Status: Acute Attending/Attestation - Attestation I have personally seen and examined this patient.: Yes I have fully participated in the care of the patient.: Yes I have reviewed all pertinent clinical information, including history, physical exam and plan: Yes Notes (Text): Patient seen, examined and case discussed with day-time resident. Patient seen this afternoon. Patient reports he is feeling better. He reports cough and musculoskeletal pains. Tmax: 99.7 Blood cultures are negative X24 hours, Urine culture negative Strep negative. Procalcitonin negative. Serology is negative for Hepatitis, ASO, negative Strep, Legionella. Awaiting Mycoplasma Igm and Lyme Disease Igm. Will repeat chest xray since he is better hydrated. Assessment/Plan (1) Fever Status: Acute Comment: * Chest xray: no acute findings; will repeat today. * Strep pneumoniae: negative, urine Legionella: negative, Mycoplasma IgM: pending, and procalcitonin low. * lood cultures (06/30/17): negative for 24 hours X2 * Start Tylenol 650mg PO Q6H PRN fever. * c/w Vitamin C 500mg PO daily. * Start Zosyn 3.375 IV Q 6H for prophylactic measure to cover for possible upper respiratory infection-->tonsillar crypts on exam. * Start Florastor 250mg PO BID to cover. * ESR/CRP elevated; pending Lyme, rheumatoid factor (2) Impaired glucose tolerance Status: Chronic Comment: * Hgba1c: 6.2, diet and exercise lifestyle modifications (3) Hypokalemia Status: resolved Comment: normalized (4) Prophylactic measure Status: Acute Comment: patient is ambulatory; SCDS while he is in bed. No GI ppx indicated. Florastor 250mg PO BID. LR 75cc/hr for one day Disposition: plan for discharge tomorrow if remains afebrile.
[2017-06-30 08:42] LABS: ALB/GLOB RATIO 0.9 (1.0-2.1); ALBUMIN 3.2 g/dL (3.5-5.0); ALT/SGPT 21 U/L (21-72); AST/SGOT 19 U/L (17-59); BLOOD UREA NITROGEN 9 mg/dL (9-20); CALCIUM 8.5 mg/dl (8.6-10.4); GFR AFRICAN-AMERICAN > 60; GFR NON-AFRICAN AMERICAN > 60
[2017-06-30 09:12] LABS: HEPATITIS B SURFACE AG Negative (NEGATIVE)
[2017-06-30 09:18] LABS: HEPATITIS A IGM NEGATIVE (NEGATIVE); HEPATITIS B CORE AB NEGATIVE (NEGATIVE)
[2017-06-30 09:30] LABS: HEPATITIS C ANTIBODY NEGATIVE (NEGATIVE)
[2017-06-30 09:36] LABS: BASO % 0.3 % (0.0-2.0); EOS # 0.1 K/uL (0.0-0.7); EOS % 0.7 % (0.0-4.0); HEMOGLOBIN 11.9 g/dL (12.0-18.0); LYMPH # 1.6 K/uL (1.0-4.3); LYMPH % 11.6 % (20.0-40.0); MEAN CELL VOLUME 85.8 fL (80.0-94.0); MEAN CORPUSCULAR HEMOGLOBIN 28.9 pg (27.0-31.0); MEAN CORPUSCULAR HGB CONC 33.6 g/dL (33.0-37.0); MEAN PLATELET VOLUME 9.3 fL (7.2-11.7); MONO % 15.1 % (0.0-10.0); NEUT # 9.7 K/uL (1.8-7.0); NEUT % 72.3 % (50.0-75.0); RBC 4.11 Mil/uL (4.40-5.90); RED CELL DISTRIBUTION WIDTH 13.4 % (11.5-14.5); WHITE BLOOD COUNT 13.4 K/uL (4.8-10.8)
[2017-06-30] MEDS ORDERED: guaiFENesin 100 mg/5 ml Syrup UD PO PRN (09:38)
[2017-06-30] MEDS: Saccharomyces Boulardi 250 mg Cap PO SCH ×2 (10:53→17:48)
[2017-06-30] MEDS: guaiFENesin 600 mg ER Tab PO SCH (10:53)
--- NOTE | 2017-06-30 12:16 | CARD ---
APPROVED REPORT EKG Measurement Heart [id number] <Conclusion> Normal sinus rhythm Nonspecific T wave abnormality Abnormal ECG
[2017-06-30 12:33] LABS: ANTI SREPTOLYSIN O NEGATIVE (NEGATIVE)
--- NOTE | 2017-06-30 14:39 | RAD ---
HISTORY: cough Cough. Open COMPARISON: No prior. TECHNIQUE: Chest PA and lateral FINDINGS: LUNGS: Left lower lobe, retrocardiac infiltrate best seen on the lateral view. PLEURA: No significant pleural effusion identified. No pneumothorax apparent. CARDIOVASCULAR: Normal. OSSEOUS STRUCTURES: No significant abnormalities. VISUALIZED UPPER ABDOMEN: Normal. OTHER FINDINGS: None. IMPRESSION: Stable left lower lobe infiltrate.
[2017-06-30] MEDS ORDERED: guaiFENesin-Codeine 100-10mg/5ml Syrup (10ml) UD PO PRN (16:00)
[2017-06-30 18:40] LABS: MYCOPLASMA PNEUMONIAE IGM POSITIVE (NEGATIVE)
[2017-07-01] MEDS: Piperacill/Tazo 3.375gm in Dex 3.375 GM/50 ML BAG IVPB SCH ×2 (00:03→06:19)
[2017-07-01 03:17] VITALS: O2SAT 96
[2017-07-01 04:32] LABS: ALB/GLOB RATIO 0.9 (1.0-2.1); ALBUMIN 3.4 g/dL (3.5-5.0); ALT/SGPT 24 U/L (21-72); AST/SGOT 23 U/L (17-59); BLOOD UREA NITROGEN 9 mg/dL (9-20); GFR AFRICAN-AMERICAN > 60; GFR NON-AFRICAN AMERICAN > 60
[2017-07-01 04:42] LABS: CK-MB 0.55 ng/mL (0.0-3.38)
[2017-07-01] MEDS: Lactated Ringer's 1,000 ML IV SCH (05:24)
--- NOTE | 2017-07-01 06:55 | CP.PCM.PN ---
Subjective - Date & Time of Evaluation Date of Evaluation: 07/01/17 Time of Evaluation: 06:55 - Subjective Subjective: Progress note for Dr. Khloe Soler Objective - Vital Signs/Intake and Output Vital Signs (last 24 hours): Temp Pulse Resp BP Pulse Ox 98.1 F 80 18 147/85 96 07/01/17 03:16 07/01/17 03:16 07/01/17 03:16 07/01/17 03:16 07/01/17 03:16 Intake and Output: 06/30/17 07/01/17 18:59 06:59 Intake Total 1050 Balance 1050 - Medications Medications: Current Medications Acetaminophen (Tylenol 325mg Tab) 650 mg PO Q6 PRN PRN Reason: Fever >100.4 F Last Admin: 06/30/17 06:10 Dose: 650 mg Ascorbic Acid (Vitamin C 500 Mg Tab) 500 mg PO DAILY [facility] Last Admin: 06/30/17 10:55 Dose: 500 mg Guaifenesin/Codeine Phosphate (Guaifenesin/Codeine) 10 ml PO Q4H PRN PRN Reason: Cough and congestion Heparin Sodium (Porcine) (Heparin) 5,000 units SC Q12 [facility] Last Admin: 06/30/17 22:04 Dose: 5,000 units Piperacillin Sod/Tazobactam Sod (Zosyn 3.375 Gm Iv Premix) 3.375 gm in 50 mls @ 100 mls/hr IVPB Q6H [facility] PRN Reason: Protocol Last Admin: 07/01/17 06:19 Dose: 100 mls/hr Lactated Ringer's (Lactated Ringer's) 1,000 mls @ 75 mls/hr IV .[id number] [facility] Last Admin: 07/01/17 05:24 Dose: 75 mls/hr Saccharomyces Boulardii (Florastor) 250 mg PO BID [facility] Last Admin: 06/30/17 17:48 Dose: 250 mg - Labs Labs: 06/30/17 08:16 07/01/17 04:11 Assessment and Plan - Assessment and Plan (Free Text) Assessment: 46M with past medical history of BPH presents with back-aches, headaches, neck- aches, and cough and is being treated for URI URI with fever and leukocytosis Labs: ESR 87 Procalcitonin 0.17 UA negative Urine Drug test: negative Urine culture Negative Hep Bs Ag, Ab, c IgM ab negative Influenza a and b negative Urine Legionella pneumophila Ag Anti-staphylolysin O - negative F/u lyme disease IgM ab f/u urine strep culture Mycoplasma pneumoniae IgM - (Positive) Procalcitonin serum 0.17 ESR 87 CRP >15.00 f/u blood culture 06/29 CXR: no active disease Urine drug screen negative Fever: Tylenol 650mg Q6H PRN Vitamin C 500mg PO QD Zosyn 3.375gm in 50cc IVPB Q6H Florastor 250mg PO BID Guaifenesin 100mg PO Q4H syrup PRN LR @75cc/hr f/u AM CBC Hypokalemia repleted 06/29 f/u AM CMP Hyperglycemia, Impaired Glucose tolerance Hgb A1c 6.2 06/30 diet change to mod consistent carbohydrate Prophylaxis: patient is ambulatory SCD for while in bed no GI prophylaxis indicated at this time 06/30 diet change to mod consistent carbohydrate Florastor 250mg PO BID discussed with Dr. Khloe Brown DO PGY1
--- NOTE | 2017-07-01 06:57 | CP.PCM.DIS ---
<Neelima Brown - Last Filed: 07/01/17 16:20> Provider - Provider Date of Admission: 06/29/17 09:14 Attending physician: Galina Ledbetter DO Time Spent in preparation of Discharge (in minutes): 35 Diagnosis - Discharge Diagnosis (1) CAP (community acquired pneumonia) due to Mycoplasma pneumoniae Status: Acute Comment: treated with azithromycin. discharged on z-dileep to follow up with [facility]. Hospital Course - Lab Results Lab Results: Micro Results 06/29/17 09:30 Blood Blood Culture - Preliminary NO GROWTH AFTER 24 HOURS 06/29/17 07:00 Blood Blood Culture - Preliminary NO GROWTH AFTER 24 HOURS 06/29/17 09:49 Urine Urine Culture - Final No Growth (<1,000 CFU/ML) 06/29/17 09:49 Throat Group A Strep Throat Culture - Final NO BETA STREP GROUP A ISOLATED. Most Recent Lab Values WBC 13.4 K/uL (4.8-10.8) H 06/30/17 08:16 RBC 4.11 Mil/uL (4.40-5.90) L 06/30/17 08:16 Hgb 11.9 g/dL (12.0-18.0) L 06/30/17 08:16 Hct 35.3 % (35.0-51.0) 06/30/17 08:16 MCV 85.8 fL (80.0-94.0) 06/30/17 08:16 MCH 28.9 pg (27.0-31.0) 06/30/17 08:16 MCHC 33.6 g/dL (33.0-37.0) 06/30/17 08:16 RDW 13.4 % (11.5-14.5) 06/30/17 08:16 Plt Count 187 K/uL (130-400) 06/30/17 08:16 MPV 9.3 fL (7.2-11.7) 06/30/17 08:16 Neut % (Auto) 72.3 % (50.0-75.0) 06/30/17 08:16 Lymph % (Auto) 11.6 % (20.0-40.0) L 06/30/17 08:16 [place] % (Auto) 15.1 % (0.0-10.0) H 06/30/17 08:16 Eos % (Auto) 0.7 % (0.0-4.0) 06/30/17 08:16 Baso % (Auto) 0.3 % (0.0-2.0) 06/30/17 08:16 Neut # (Auto) 9.7 K/uL (1.8-7.0) H 06/30/17 08:16 Lymph # (Auto) 1.6 K/uL (1.0-4.3) 06/30/17 08:16 [place] # (Auto) 2.0 K/uL (0.0-0.8) H 06/30/17 08:16 Eos # (Auto) 0.1 K/uL (0.0-0.7) 06/30/17 08:16 Baso # (Auto) 0.0 K/uL (0.0-0.2) 06/30/17 08:16 Neutrophils % (Manual) 75 % (50-75) 06/29/17 07:21 Band Neutrophils % 3 % (0-2) H 06/29/17 07:21 Lymphocytes % (Manual) 9 % (20-40) L 06/29/17 07:21 Monocytes % (Manual) 13 % (0-10) H 06/29/17 07:21 Platelet Estimate Normal (NORMAL) 06/29/17 07:21 RBC Morphology Normal 06/29/17 07:21 ESR 87 mm/hr (0-15) H 06/29/17 19:42 Sodium 144 mmol/L (132-148) 07/01/17 04:11 Potassium 4.0 mmol/L (3.6-5.2) 07/01/17 04:11 Chloride 106 mmol/L (98-107) 07/01/17 04:11 Carbon Dioxide 30 mmol/L (22-30) 07/01/17 04:11 Anion Gap 13 (10-20) 07/01/17 04:11 BUN 9 mg/dL (9-20) 07/01/17 04:11 Creatinine 0.8 mg/dL (0.8-1.5) 07/01/17 04:11 Est GFR ( Amer) > 60 07/01/17 04:11 Est GFR (Non-Af Amer) > 60 07/01/17 04:11 Random Glucose 108 mg/dL (75-110) 07/01/17 04:11 Hemoglobin A1c 6.2 % (4.2-6.5) 06/30/17 08:16 Lactic Acid 0.7 mmol/L (0.7-2.1) 06/29/17 09:49 Calcium 9.0 mg/dl (8.6-10.4) 07/01/17 04:11 Phosphorus 4.6 mg/dL (2.5-4.5) H 07/01/17 04:11 Magnesium 2.0 mg/dL (1.6-2.3) 07/01/17 04:11 Total Bilirubin 0.5 mg/dL (0.2-1.3) 07/01/17 04:11 AST 23 U/L (17-59) 07/01/17 04:11 ALT 24 U/L (21-72) 07/01/17 04:11 Alkaline Phosphatase 87 U/L (38-126) 07/01/17 04:11 Lactate Dehydrogenase 331 U/L (313-618) 06/29/17 07:21 Total Creatine Kinase 31 U/L (55-170) L 07/01/17 04:11 CK-MB (Mass) 0.55 ng/mL (0.0-3.38) 07/01/17 04:11 Troponin I < 0.0120 ng/mL (0.00-0.120) 07/01/17 04:11 C-React Prot High Sens > 15.00 mg/L (1.00-3.00) H 06/29/17 19:42 Total Protein 7.1 g/dL (6.3-8.3) 07/01/17 04:11 Albumin 3.4 g/dL (3.5-5.0) L 07/01/17 04:11 Globulin 3.7 gm/dL (2.2-3.9) 07/01/17 04:11 Albumin/Globulin Ratio 0.9 (1.0-2.1) L 07/01/17 04:11 Procalcitonin 0.17 NG/ML (0.19-0.49) L 06/29/17 09:49 Urine Color Yellow (YELLOW) 06/29/17 06:12 Urine Clarity Clear (Clear) 06/29/17 06:12 Urine pH 6.0 (5.0-8.0) 06/29/17 06:12 Ur Specific [place] 1.021 (1.003-1.030) 06/29/17 06:12 Urine Protein Negative mg/dL (NEGATIVE) 06/29/17 06:12 Urine Glucose (UA) Normal mg/dL (Normal) 06/29/17 06:12 Urine Ketones Negative mg/dL (NEGATIVE) 06/29/17 06:12 Urine Blood 2+ (NEGATIVE) H 06/29/17 06:12 Urine Nitrate Negative (NEGATIVE) 06/29/17 06:12 Urine Bilirubin Negative (NEGATIVE) 06/29/17 06:12 Urine Urobilinogen Normal mg/dL (0.2-1.0) 06/29/17 06:12 Ur Leukocyte Esterase Neg Kayli/uL (Negative) 06/29/17 06:12 Urine WBC (Auto) 2 /hpf (0-5) 06/29/17 06:12 Urine RBC (Auto) 24 /hpf (0-3) H 06/29/17 06:12 Urine Opiates Screen Negative (NEGATIVE) 06/29/17 09:49 Urine Methadone Screen Negative (NEGATIVE) 06/29/17 09:49 Ur Barbiturates Screen Negative (NEGATIVE) 06/29/17 09:49 Ur Phencyclidine Scrn Negative (NEGATIVE) 06/29/17 09:49 Ur Amphetamines Screen Negative (NEGATIVE) 06/29/17 09:49 U Benzodiazepines Scrn Negative (NEGATIVE) 06/29/17 09:49 U Oth Cocaine Metabols Negative (NEGATIVE) 06/29/17 09:49 U Cannabinoids Screen Negative (NEGATIVE) 06/29/17 09:49 Rheumatoid Arth Interp Negative (NEGATIVE) 06/29/17 19:42 RAINE 6 Profile Negative (NEGATIVE) 06/29/17 19:42 Hepatitis A IgM Ab Negative (NEGATIVE) 06/30/17 08:16 Hep Bs Antigen Negative (NEGATIVE) 06/30/17 08:16 Hep Bs Antibody Negative (NEGATIVE) 06/30/17 08:52 Hep B Core IgM Ab Negative (NEGATIVE) 06/30/17 08:16 Hepatitis C Antibody Negative (NEGATIVE) 06/30/17 08:16 Influenza Typ A,B (EIA) Negative for flu a/b (NEGATIVE) 06/29/17 07:52 Ur L.pneumophila Ag Negative (NEGATIVE) 06/29/17 09:49 Mycoplasma pneumon IgM Positive (NEGATIVE) H 06/29/17 09:49 Anti-Staphylolysin O Negative (NEGATIVE) 06/29/17 19:42 S. pneumoniae Antigen Negative (NEGATIVE) 06/29/17 10:00 - Hospital Course Hospital Course: HPI 46M with past medical history of BPH presents with fever 102.9F, chills, lower back and upper back aches, neck aches, headaches.Patient states the lower back pain began after having a rash appear on his lower back and arms. Patient states that the rash was itchy. Patient went to ER 06/27/16 and was sent home on Motrin and told to hydrate. Patient states he wasn't feeling better so he came in today. 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 Patient states he started having a dry cough 06/28/2017. Hospital Course Patient was tested for multiple infectious causes. Patient was given Mucinex LA for cough, Tylenol for fever. Chest xray showed no active disease. Patient was on Zosyn during stay. Repeat CXR after receiving fluids showed left lower lobe infiltrate. Testing positive for mycoplasma pneumoniae IgM ab. Switched to Azithromycin 500mg IVPB daily. Patient felt much better 07/01 and discharged on medication for community acquired pneumonia. Discharge Medications Z-dileep Mucinex LA Robitussin OTC Above is a brief summary of events during hospital stay. Please see EMR for more information. - Date & Time of H&P Date of H&P: 07/01/17 Time of H&P: 11:13 Discharge Exam - Head Exam Head Exam: NORMAL INSPECTION, NORMOCEPHALIC - Additional Findings Additional findings: - Constitutional Appears: Non-toxic, No Acute Distress - Head Exam Head Exam: NORMAL INSPECTION, NORMOCEPHALIC - Eye Exam Eye Exam: EOMI, Normal appearance - ENT Exam ENT Exam: Mucous Membranes Moist, Normal Exam Additional comments: injected uvula enlarged tonsils with crypts - Neck Exam Neck Exam: Full ROM, Lymphadenopathy. absent: Tenderness - Respiratory Exam Respiratory Exam: Clear to Ausculation Bilateral, NORMAL BREATHING PATTERN. absent: Accessory Muscle Use - Cardiovascular Exam Cardiovascular Exam: REGULAR RHYTHM, +S1, +S2 - GI/Abdominal Exam GI & Abdominal Exam: Soft. absent: Tenderness - Extremities Exam Extremities Exam: Full ROM. absent: Pedal Edema - Back Exam Back Exam: Full ROM, NORMAL INSPECTION - Neurological Exam Neurological Exam: Alert, Awake, CN II-XII Intact - Psychiatric Exam Psychiatric exam: Normal Affect, Normal Mood - Skin Skin Exam: Dry, Intact, Normal Color, Warm. absent: Rash Discharge Plan - Discharge Medications Prescriptions: Azithromycin [Z-Dileep] 250 mg PO DAILY #6 tab guaiFENesin [Mucinex LA] 600 mg PO Q12 #14 tab Saccharomyces Boulardi [Florastor] 250 mg PO BID #14 cap - Follow Up Plan Condition: IMPROVED Disposition: HOME/ ROUTINE Patient education suggested?: Yes Instructions: Saccharomyces boulardii, Azithromycin (Systemic), Flu, Adult (DC) , Guaifenesin, Community-Acquired Pneumonia, Adult (DC), Why Vaccines Are Important for Everyone Additional Instructions: Establish care at [facility] Follow up CXR in one month Take antibiotics as directed Take medication as directed Referrals: [facility] at [facility] [Outside] <Galina Ledbetter V - Last Filed: 07/02/17 07:17> Provider - Provider Date of Admission: 06/29/17 09:14 Attending physician: Galina Ledbetter DO Diagnosis - Discharge Diagnosis (1) Fever Status: Acute (2) Hyperglycemia Status: Acute (3) Hypokalemia Status: Acute (4) Prophylactic measure Status: Acute Hospital Course - Lab Results Lab Results: Micro Results 06/29/17 09:30 Blood Blood Culture - Preliminary NO GROWTH AFTER 48 HOURS 06/29/17 07:00 Blood Blood Culture - Preliminary NO GROWTH AFTER 48 HOURS 06/29/17 09:49 Throat Group B Streptococcus Culture - Final NO BETA STREP GROUP B ISOLATED. 06/29/17 09:49 Urine Urine Culture - Final No Growth (<1,000 CFU/ML) 06/29/17 09:49 Throat Group A Strep Throat Culture - Final NO BETA STREP GROUP A ISOLATED. Most Recent Lab Values WBC 8.5 K/uL (4.8-10.8) 07/01/17 07:43 RBC 4.15 Mil/uL (4.40-5.90) L 07/01/17 07:43 Hgb 12.2 g/dL (12.0-18.0) 07/01/17 07:43 Hct 35.5 % (35.0-51.0) 07/01/17 07:43 MCV 85.4 fL (80.0-94.0) 07/01/17 07:43 MCH 29.3 pg (27.0-31.0) 07/01/17 07:43 MCHC 34.4 g/dL (33.0-37.0) 07/01/17 07:43 RDW 13.5 % (11.5-14.5) 07/01/17 07:43 Plt Count 226 K/uL (130-400) 07/01/17 07:43 MPV 9.4 fL (7.2-11.7) 07/01/17 07:43 Neut % (Auto) 57.9 % (50.0-75.0) 07/01/17 07:43 Lymph % (Auto) 27.0 % (20.0-40.0) 07/01/17 07:43 [place] % (Auto) 11.2 % (0.0-10.0) H 07/01/17 07:43 Eos % (Auto) 3.4 % (0.0-4.0) 07/01/17 07:43 Baso % (Auto) 0.5 % (0.0-2.0) 07/01/17 07:43 Neut # (Auto) 4.9 K/uL (1.8-7.0) 07/01/17 07:43 Lymph # (Auto) 2.3 K/uL (1.0-4.3) 07/01/17 07:43 [place] # (Auto) 1.0 K/uL (0.0-0.8) H 07/01/17 07:43 Eos # (Auto) 0.3 K/uL (0.0-0.7) 07/01/17 07:43 Baso # (Auto) 0.0 K/uL (0.0-0.2) 07/01/17 07:43 Neutrophils % (Manual) 75 % (50-75) 06/29/17 07:21 Band Neutrophils % 3 % (0-2) H 06/29/17 07:21 Lymphocytes % (Manual) 9 % (20-40) L 06/29/17 07:21 Monocytes % (Manual) 13 % (0-10) H 06/29/17 07:21 Platelet Estimate Normal (NORMAL) 06/29/17 07:21 RBC Morphology Normal 06/29/17 07:21 ESR 87 mm/hr (0-15) H 06/29/17 19:42 Sodium 144 mmol/L (132-148) 07/01/17 04:11 Potassium 4.0 mmol/L (3.6-5.2) 07/01/17 04:11 Chloride 106 mmol/L (98-107) 07/01/17 04:11 Carbon Dioxide 30 mmol/L (22-30) 07/01/17 04:11 Anion Gap 13 (10-20) 07/01/17 04:11 BUN 9 mg/dL (9-20) 07/01/17 04:11 Creatinine 0.8 mg/dL (0.8-1.5) 07/01/17 04:11 Est GFR ( Amer) > 60 07/01/17 04:11 Est GFR (Non-Af Amer) > 60 07/01/17 04:11 Random Glucose 108 mg/dL (75-110) 07/01/17 04:11 Hemoglobin A1c 6.2 % (4.2-6.5) 06/30/17 08:16 Lactic Acid 0.7 mmol/L (0.7-2.1) 06/29/17 09:49 Calcium 9.0 mg/dl (8.6-10.4) 07/01/17 04:11 Phosphorus 4.6 mg/dL (2.5-4.5) H 07/01/17 04:11 Magnesium 2.0 mg/dL (1.6-2.3) 07/01/17 04:11 Total Bilirubin 0.5 mg/dL (0.2-1.3) 07/01/17 04:11 AST 23 U/L (17-59) 07/01/17 04:11 ALT 24 U/L (21-72) 07/01/17 04:11 Alkaline Phosphatase 87 U/L (38-126) 07/01/17 04:11 Lactate Dehydrogenase 331 U/L (313-618) 06/29/17 07:21 Total Creatine Kinase 31 U/L (55-170) L 07/01/17 04:11 CK-MB (Mass) 0.55 ng/mL (0.0-3.38) 07/01/17 04:11 Troponin I < 0.0120 ng/mL (0.00-0.120) 07/01/17 04:11 C-React Prot High Sens > 15.00 mg/L (1.00-3.00) H 06/29/17 19:42 Total Protein 7.1 g/dL (6.3-8.3) 07/01/17 04:11 Albumin 3.4 g/dL (3.5-5.0) L 07/01/17 04:11 Globulin 3.7 gm/dL (2.2-3.9) 07/01/17 04:11 Albumin/Globulin Ratio 0.9 (1.0-2.1) L 07/01/17 04:11 Procalcitonin 0.17 NG/ML (0.19-0.49) L 06/29/17 09:49 Urine Color Yellow (YELLOW) 06/29/17 06:12 Urine Clarity Clear (Clear) 06/29/17 06:12 Urine pH 6.0 (5.0-8.0) 06/29/17 06:12 Ur Specific [place] 1.021 (1.003-1.030) 06/29/17 06:12 Urine Protein Negative mg/dL (NEGATIVE) 06/29/17 06:12 Urine Glucose (UA) Normal mg/dL (Normal) 06/29/17 06:12 Urine Ketones Negative mg/dL (NEGATIVE) 06/29/17 06:12 Urine Blood 2+ (NEGATIVE) H 06/29/17 06:12 Urine Nitrate Negative (NEGATIVE) 06/29/17 06:12 Urine Bilirubin Negative (NEGATIVE) 06/29/17 06:12 Urine Urobilinogen Normal mg/dL (0.2-1.0) 06/29/17 06:12 Ur Leukocyte Esterase Neg Kayli/uL (Negative) 06/29/17 06:12 Urine WBC (Auto) 2 /hpf (0-5) 06/29/17 06:12 Urine RBC (Auto) 24 /hpf (0-3) H 06/29/17 06:12 Urine Opiates Screen Negative (NEGATIVE) 06/29/17 09:49 Urine Methadone Screen Negative (NEGATIVE) 06/29/17 09:49 Ur Barbiturates Screen Negative (NEGATIVE) 06/29/17 09:49 Ur Phencyclidine Scrn Negative (NEGATIVE) 06/29/17 09:49 Ur Amphetamines Screen Negative (NEGATIVE) 06/29/17 09:49 U Benzodiazepines Scrn Negative (NEGATIVE) 06/29/17 09:49 U Oth Cocaine Metabols Negative (NEGATIVE) 06/29/17 09:49 U Cannabinoids Screen Negative (NEGATIVE) 06/29/17 09:49 Rheumatoid Arth Interp Negative (NEGATIVE) 06/29/17 19:42 RAINE 6 Profile Negative (NEGATIVE) 06/29/17 19:42 Lyme Disease Screen <0.90 index 06/29/17 19:42 Lyme Disease IgM Ab Negative (NEGATIVE) 06/29/17 19:42 Hepatitis A IgM Ab Negative (NEGATIVE) 06/30/17 08:16 Hep Bs Antigen Negative (NEGATIVE) 06/30/17 08:16 Hep Bs Antibody Negative (NEGATIVE) 06/30/17 08:52 Hep B Core IgM Ab Negative (NEGATIVE) 06/30/17 08:16 Hepatitis C Antibody Negative (NEGATIVE) 06/30/17 08:16 Influenza Typ A,B (EIA) Negative for flu a/b (NEGATIVE) 06/29/17 07:52 Ur L.pneumophila Ag Negative (NEGATIVE) 06/29/17 09:49 Mycoplasma pneumon IgM Positive (NEGATIVE) H 06/29/17 09:49 Anti-Staphylolysin O Negative (NEGATIVE) 06/29/17 19:42 S. pneumoniae Antigen Negative (NEGATIVE) 06/29/17 10:00 Attending/Attestation - Attestation I have personally seen and examined this patient.: Yes I have fully participated in the care of the patient.: Yes I have reviewed all pertinent clinical information, including history, physical exam and plan: Yes Notes (Text): This is late computer entry for 07/01/17. Patient seen, examined and case discussed with day-time resident. Patient seen this morning. Patient reports he is feeling better. Patient reports he is tolerating diet and feeling better. I explained the repeat chest xray to the patient and serology result that he has Mycoplasma pneumonia. Patient is afebrile and blood cultures are negative. Prescriptions: 1) Z-pack 2) Mucinex 3) Robotussin over the counter 4) Tylenol OTC Discharge Diagnoses: (1) Mycoplasma Pneumonia Status: Acute Comment: * Chest xray: no acute findings; will repeat today. * Chest xray: stable left infiltrate * Strep pneumoniae: negative, urine Legionella: negative, Mycoplasma IgM: positive and procalcitonin low. * Blood cultures (06/30/17): negative * c/w Tylenol 650mg PO Q6H PRN fever. * White count has normalized. Afebrile for 48 hours. * c/w Vitamin C 500mg PO daily. * Switched to Azithyromycin 500mg IV q daily (2) Impaired glucose tolerance Status: Chronic Comment: * Hgba1c: 6.2, diet and exercise lifestyle modifications (3) Hypokalemia Status: resolved Comment: normalized (4) Prophylactic measure Status: Acute Comment: patient is ambulatory; SCDS while he is in bed. No GI ppx indicated. Florastor 250mg PO BID.
[2017-07-01 07:46] VITALS: BP 120/80; PULSE 59; RESP 20; TEMP 97.9
[2017-07-01 08:00] LABS: BASO % 0.5 % (0.0-2.0); EOS # 0.3 K/uL (0.0-0.7); EOS % 3.4 % (0.0-4.0); HEMOGLOBIN 12.2 g/dL (12.0-18.0); LYMPH # 2.3 K/uL (1.0-4.3); MEAN CELL VOLUME 85.4 fL (80.0-94.0); MEAN CORPUSCULAR HEMOGLOBIN 29.3 pg (27.0-31.0); MEAN CORPUSCULAR HGB CONC 34.4 g/dL (33.0-37.0); MEAN PLATELET VOLUME 9.4 fL (7.2-11.7); MONO % 11.2 % (0.0-10.0); NEUT # 4.9 K/uL (1.8-7.0); NEUT % 57.9 % (50.0-75.0); RBC 4.15 Mil/uL (4.40-5.90); RED CELL DISTRIBUTION WIDTH 13.5 % (11.5-14.5); WHITE BLOOD COUNT 8.5 K/uL (4.8-10.8)
[2017-07-01] MEDS ORDERED: Azithromycin 500 MG in Sodium Chloride 0.9% 250 ML IVPB SCH (10:00)
[2017-07-01] MEDS: Saccharomyces Boulardi 250 mg Cap PO SCH (10:25)
[2017-07-01 16:43] LABS: LYME IGM NEGATIVE (NEGATIVE)
--- NOTE | 2017-07-02 22:24 | CARD ---
APPROVED REPORT EKG Measurement Heart [id number] <Conclusion> Sinus bradycardia Otherwise normal ECG
== END 2017-07-01 12:58 | disposition home or self-care (01) ==
LOC: C.ER 05:36 → C.9E 09:14 → C.3T 10:06
PROVIDERS: ADMIT Hospitalist; ATTEND Hospitalist
DX: J15.7 Pneumonia due to Mycoplasma pneumoniae (principal); N40.0 Benign prostatic hyperplasia without lower urinary tract symptoms; E87.6 Hypokalemia; A69.20 Lyme disease, unspecified; R73.9 Hyperglycemia, unspecified
CPT/HCPCS: 36415; 71046; 80053; 80074; 80324; 80345; 80346; 80349; 80353; 80358; 80361; 81001; 83036; 83520; 83605; 83615; 83735; 83992; 84100; 84145; 84484; 85025; 85651; 86038; 86060; 86140; 86403; 86430; 86618; 86706; 86738; 87040; 87070; 87081; 87086; 87449; 87804; 93005; 96360; 96372; 99285; G0378; J0456; J1644; J1885; J2543; J7040; J7050; J7120